=== PATIENT | male | born 1950 | race Caucasian/White ===

== ENCOUNTER → 2016-11-29 | Outpatient (CLI) | payer MEDICARE, OTHER | LOC: KOH-I 10:35 | DX: Z87.891 Personal history of nicotine dependence (principal); R59.0 Localized enlarged lymph nodes | CPT/HCPCS: G0297 ==

== ENCOUNTER → 2016-12-04 | Outpatient (CLI) | payer MEDICARE, OTHER | LOC: US 08:25 | DX: Z13.6 Encounter for screening for cardiovascular disorders (principal); I77.811 Abdominal aortic ectasia | CPT/HCPCS: 76706 ==